=== PATIENT | male | born 1960 | race African-American/Black ===

== ENCOUNTER 2019-12-25 23:24 | Emergency (ER) | payer OTHER ==
[~2019-12-25] VITALS: Ht 167.6 cm; Wt 83.5 kg
--- NOTE | 2019-12-25 23:45 | NUR ---
ED Nurse Note: Recieved pt from home, here with c/o abces like lesion to right ear lobe x 2-3 days, pt states he noted what appeared to be a spider bite on earlobe, attempted to drain area, ear lobe has pain at 8/10, throbbing and very swollen, pt did not see spider, only thinks so, denies any other areas or complaints.
[2019-12-26] MEDS ORDERED: BACTRIM DS TAB1 EAC1 ORAL (00:11)
[2019-12-26] MEDS ORDERED: HYDROCODON-ACE1 EA15 ORAL (00:11)
[2019-12-26] MEDS ORDERED: MUPIROCIN22 GM TOPIC (00:11)
--- NOTE | 2019-12-26 00:12 | Emergency Room Report ---
History of Present Illness General Chief Complaint: Skin Rash/Abscess Source: Patient Present Illness HPI This is a 59-year-old male with history of asthma. Presents with complaint of right ear pain. He has swelling to the right earlobe for last 3 days. His neighbor tried to push on it and there was some pus expressed. Swelling got worse. Pain is 8 out of 10. Worse with palpation. Better with leaving alone. No fever or chills. Does have drainage. Never had this problem before. No a piercing in that ear. 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 Patient History Past Medical History: see triage record, old chart reviewed, asthma Past Surgical History: none Pertinent Family History: none Social History: Denies: smoking Immunizations: other Reviewed Nursing Documentation: PMH: Agreed; PSxH: Agreed Nursing Documentation-PMH Past Medical History: No Stated History Hx Cardiac Problems: No Hx Hypertension: No Hx Pacemaker: No Hx Asthma: Yes Hx COPD: No Hx Diabetes: No Hx Cancer: No Hx Gastrointestinal Problems: No Hx Dialysis: No History Of Psychiatric Problem: No Hx Neurological Problems: No Hx Cerebrovascular Accident: No Hx Seizures: No Review of Systems Eye: Denies: eye pain, blurred vision ENT: Reports: ear pain, ear discharge; Denies: nose congestion, throat swelling Respiratory: Denies: cough, shortness of breath Cardiovascular: Denies: chest pain, palpitations Gastrointestinal: Denies: abdominal pain, diarrhea, nausea, vomiting Musculoskeletal: Denies: back pain, joint pain Skin: Denies: rash Neurological: Denies: headache, numbness Endocrine: Denies: increased thirst, increased urine Hematologic/Lymphatic: Denies: easy bruising All Other Systems: negative except mentioned in HPI Physical Exam Vital Signs Date Time Temp Pulse Resp B/P (MAP) Pulse Ox O2 Delivery O2 Flow Rate FiO2 12/25/19 23:33 98.4 80 20 166/104 (124) 97 Room Air Vitals with high blood pressure Sp02 EP Interpretation: reviewed, normal General Appearance: well appearing, no apparent distress, alert Head: normocephalic, atraumatic Eyes: bilateral eye PERRL, bilateral eye EOMI ENT: hearing grossly normal, normal pharynx, other - Right earlobe with swelling and erythema. There is central necrosis with slight discharge. Neck: full range of motion, supple, no meningismus Respiratory: chest non-tender, lungs clear, normal breath sounds Cardiovascular #1: regular rate, rhythm, no murmur Gastrointestinal: normal bowel sounds, non tender, no mass, no organomegaly, no bruit, non-distended Musculoskeletal: back normal, normal range of motion, gait/station normal Psychiatric: mood/affect normal Procedures Incision and Drainage Incision and Drainage : Consent: Verbal Site: Right earlobe Blade Size: 11 I & D Procedure: betadine prep, sterile drapes applied Wound Location: face Anesthesia: 1% Lidocaine Volume Anesthetic (ccs): 3 Patient Tolerated: Well Complications: None Progress I did an inferior auricular block with 1% lidocaine. I also did local anesthetic. I made a 1 cm incision. I suppressed relatively large amount of pus. The pus itself is thick and ropey. Loculated area broken up. Patient taught procedure without any problem. Medical Decision Making Diagnostic Impression: Primary Impression: Abscess of right earlobe ER Course Patient with an earlobe abscess. It looks more to be an infected sebaceous cyst. I expressed the pus and core out from the capsule. He already has evidence of swelling and cauliflower ear from the infection. No evidence of necrotizing fasciitis. No foreign body. Last Vital Signs Date Time Temp Pulse Resp B/P (MAP) Pulse Ox O2 Delivery O2 Flow Rate FiO2 12/25/19 23:33 98.4 80 20 166/104 (124) 97 Room Air Status: improved Disposition: HOME, SELF-CARE Condition: Stable Scripts Mupirocin* (MUPIROCIN*) 22 Gm Oint...g. 1 APPLIC TOPIC THREE TIMES A DAY, #22 GM Prov: Balbir Damian MD 12/26/19 Hydrocodone/Acetaminophen 5-325* (HYDROCODONE/ACETAMINOPHEN 5-325*) 1 Each Tablet 1 TAB ORAL Q6H PRN for For Pain, #20 TAB 0 Refills Prov: Balbir Damian MD 12/26/19 Trimethoprim/Sulfamethoxazole 160/800* (BACTRIM DS TABLET*) 1 Each Tablet 1 TAB ORAL Q12H, #14 TAB 0 Refills Prov: Balbir Damian MD 12/26/19 Referrals: NOT CHOSEN IPA/,REFERRING (PCP) Patient Instructions: Abscess Additional Instructions: Keep wound clean. Clean first with hydrogen peroxide and then apply antibiotic ointment. Follow-up with your doctor or come back here in 2 to 3 days for recheck. Return if symptoms worsen. Balbir Damian MD Dec 26, 2019 00:11
[2019-12-26] MEDS ORDERED: Bactrim-DS 1 tab ORAL ONE (00:15)
[2019-12-26] MEDS ORDERED: HYDROcodone/Acetamin 5/325 tab ORAL ONE (00:15)
[2019-12-26 00:30] VITALS: BP 153/86
[2019-12-26 00:35] VITALS: BP 153/86
--- NOTE | 2019-12-26 00:35 | NUR ---
ER DISCHARGE NOTE: Patient is cleared to be discharged per ERMD, pt is aox4, on room air, with stable vital signs. pt was given dc and prescription instructions, pt was able to verbalize understanding, pt id band removed without complications. pt is able to ambulate with steady gait. pt took all belongings.
== END 2019-12-26 00:35 | disposition home or self-care (01) ==
LOC: EMR 12-26
DX: H60.01 Abscess of right external ear (principal); J45.909 Unspecified asthma, uncomplicated
CPT/HCPCS: 99283

== ENCOUNTER 2019-12-31 21:26 | Emergency (ER) | payer OTHER ==
[~2019-12-31] VITALS: Ht 170.2 cm; Wt 81.6 kg
[~2019-12-31 21:26] MED LIST: BACTRIM DS TAB1 EAC1 ORAL; HYDROCODON-ACE1 EA15 ORAL; MUPIROCIN22 GM TOPIC
[2019-12-31] MEDS ORDERED: NAPROXEN500 M1 ORAL (21:53)
[2019-12-31] MEDS ORDERED: AUGMENTIN 875-1 EAC1 ORAL (21:53)
[2019-12-31 22:13] VITALS: BP 150/85
--- NOTE | 2019-12-31 22:32 | Emergency Room Report ---
History of Present Illness General Chief Complaint: Earache Source: Patient Present Illness HPI History of present illness: 59-year-old male presents for right earlobe abscess. Of note, patient was seen last week for similar complaint and underwent an incision and drainage and was prescribed Bactrim. Patient is concerned because although the abscess is getting better it has not entirely resolved and he only has 1 more day of antibiotics left. He denies headache, jaw pain, neck pain, fevers, chills, nausea, vomiting, diarrhea or other complaints Original abscess on his earlobe was from an insect bite. The patient's symptoms were [gradual] onset, severity was [moderate], duration since several days. Past medical history: [Denies] Past surgical history: [Denies] Smoking: [ Denies] Alcohol use: [ Denies] Drug use: [ Denies] Review of systems: CONST: No fevers or chills, No night sweats PULMONARY: No productive cough, No shortness of breath CARDIAC: No chest pain, No palpitations GI: No vomiting, No diarrhea , No melena_or_BRBPR : No dysuria, No hematuria, No discharge NEURO: No new_focal_weakness_or_numbness, No confusion, No vision changes 14 point Review of Systems is otherwise negative except per HPI Physical Exam: GENERAL: Awake_alert_ nontoxic, no acute distress Spo2 96% on [RA], [normal] EYES: Extraocular muscles are intact. Conjunctivae clear. Lids without swelling ENT: External nose and ear normal_in_appearance. Oropharynx clear. Head_ atraumatic, Moist_oral_mucosa R earlobe: 2 incisions (1 on anterior portion of ear and 1 on posterior portion both with purulent drainage) No cellulitis. No mandibular or mastoid tenderness to palpation. NECK: No JVD. No meningismus. No thyromegaly. Supple. Trachea midline RESP: Normal respiratory effort. Symmetric rise. No stridor. Clear_to_ auscultation_No_rales_No_wheezes CARDIAC: Regular rate and regular rhythm on_auscultation No_significant pedal edema. ABDOMEN: Soft. Nondistended. Nontender_No_rebound_or_guarding. MSK: Normal muscle tone, without rigidity. Extremities without asymmetric deformity or swelling. SKIN: Warm and dry. No visible cyanosis or pallor NEUROLOGIC: Alert, oriented x3. Motor_and_sensation_grossly_intact. No truncal ataxia. Gait_normal Psych: Normal mood and affect, normal judgment and insight - COORDINATION OF CARE Case was discussed with: Patient Medical Decision Making/Plan: 59-year-old male representing here for recurrent right earlobe abscess. On examination, patient is afebrile with no abnormal vital signs. He is neurologically intact. No mastoid tenderness palpation. No meningismus. The right earlobe has purulent drainage. Patient was given inferior alveolar block and using the existing incisions I expressed 2 cc of purulent material. I also swept out the loculations and packed the ear with iodoform gauze. At this point patient needs specialty referral for ENT for definitive management. He was counseled about this and states he will follow-up. Patient will follow-up with PMD for wound check in 1 to [address] patient on Augmentin for the next 10 days. Strict return ER precautions were discussed. ENT referral sent. Patient states that he works for [employer] and could get referral as well. Allergies: Coded Allergies: No Known Allergies (Unverified , 12/25/19) COVID-19 Screening Contact w/high risk pt: No Experienced COVID-19 symptoms?: No COVID-19 Testing performed DISCOVERY MANAGER: No Nursing Documentation-PMH Past Medical History: No History, Except For Hx Cardiac Problems: No Hx Hypertension: No Hx Pacemaker: No Hx Asthma: Yes Hx COPD: No Hx Diabetes: No Hx Cancer: No Hx Gastrointestinal Problems: No Hx Dialysis: No Hx Neurological Problems: No Hx Cerebrovascular Accident: No Hx Seizures: No Physical Exam Vital Signs Date Time Temp Pulse Resp B/P (MAP) Pulse Ox O2 Delivery O2 Flow Rate FiO2 12/31/19 21:27 98.2 100 19 150/85 (106) 96 Room Air Sp02 EP Interpretation: reviewed, normal Procedures Incision and Drainage Progress Abscess Incision and Drainage with irrigation by me: Location: Right earlobe Anesthesia: Local 1% Lidocaine No incision necessary. Technique: Irrigated. Disrupted loculations w/ instrumentation Packing: yes Complications: Neurovascularly intact post procedure Tolerated well without complications Medical Decision Making Diagnostic Impression: Primary Impression: Earache, right Additional Impressions: Abscess of right earlobe Abscess Last Vital Signs Date Time Temp Pulse Resp B/P (MAP) Pulse Ox O2 Delivery O2 Flow Rate FiO2 12/31/19 22:13 98.2 72 19 150/85 96 Room Air Disposition: HOME, SELF-CARE Admit Decision Time: 22:20 Condition: Stable Scripts Naproxen* (NAPROXEN*) 500 Mg Tablet.dr 500 MG ORAL TWICE A DAY for 10 Days, #20 TAB Prov: Susanna Wray D.O. 12/31/19 Amoxicillin/Potassium Clav 875-125* (AUGMENTIN 875-125 TABLET*) 1 Each Tablet 1 TAB ORAL TWICE A DAY, #20 TAB Prov: Susanna Wray D.O. 12/31/19 Referrals: [facility] Letty Smith. [facility] Patient Instructions: Earache Additional Instructions: Instructions for patient/manager drug safety: Follow up with your physician in 1 to 2 days for wound check.. Follow-up with your doctor sooner if your condition requires a more timely clinical reevaluation. Get referral to ENT physician for definitive care Return to the emergency department immediately if you feel that your condition is worsening or if you have any new or concerning symptoms. Review your discharge instructions and take any prescriptions given as instructed. Susanna Wray D.O. Dec 31, 2019 22:32
[2019-12-31 22:35] VITALS: BP 150/85
== END 2019-12-31 22:35 | disposition home or self-care (01) ==
LOC: EMR 22:19
DX: H66.41 Suppurative otitis media, unspecified, right ear (principal); H92.01 Otalgia, right ear
CPT/HCPCS: 99283